=== PATIENT | male | born 1955 | race Caucasian/White ===

== ENCOUNTER 2021-03-25 09:59 | Inpatient (IN) | payer MEDICAID, OTHER, SELFPAY ==
[~2021-03-25] VITALS: Ht 177.8 cm; Wt 88.5 kg
[~2021-03-25 09:59] MED LIST: BENA5TAB9 PO; GLYB5TAB8 PO; METF-370 PO
[2021-03-25 11:27] LABS: Potassium 4.5 mmol/L (3.5-5.1)
[2021-03-25 11:35] LABS: Albumin 3.2 g/dL (3.4-5.0); BUN/Creatinine Ratio 14.9; Bilirubin, Total 0.5 mg/dL (0.2-1.0); Calcium 8.5 mg/dL (8.5-10.1); Total Protein 6.5 g/dL (6.4-8.2)
[2021-03-25 11:45] LABS: Basophils # (auto) 0 10 ^3/uL (0-0.2); Basophils % (auto) 0.2 % (0.0-2.0); Eosinophils # (auto) 0 10 ^3/uL (0-0.8); Eosinophils % (auto) 0.2 % (0.0-7.0); Hematocrit 39.1 % (41.0-53.0); Hemoglobin 13.3 g/dL (13.5-17.5); Lymphocytes # (auto) 0.6 10 ^3/uL (0.4-5.4); Lymphocytes % (auto) 3.3 % (10.0-50.0); Mean Corpuscular Hemoglobin 28.9 pg (28.0-32.0); Mean Corpuscular Hgb Conc. 34.2 g/dL (32.0-36.0); Mean Corpuscular Volume 84.8 fL (80.0-100.0); Monocytes # (auto) 0.4 10 ^3/uL (0-1.3); Monocytes % (auto) 2.5 % (0.0-12.0); Neutrophils # (auto) 15.8 10 ^3/uL (1.6-8.6); Neutrophils % (auto) 93.8 % (37.0-80.0); Red Blood Cells 4.61 10^6/uL (4.5-5.90); Red Cell Distribution Width 13.4 % (11.8-14.3); White Blood Cell 16.9 10^3/uL (4.4-10.8)
[2021-03-25] MEDS ORDERED: MORPHINE SULFATE 4 MG/ML SYR/VIAL IV ONE (16:15)
[2021-03-25] MEDS ORDERED: ONDANSETRON HCL 4 MG/2 ML VIAL IV ONE (16:15)
[2021-03-25] MEDS: SODIUM CHLORIDE 0.9% 1,000 ML IV ONE ×2 (18:00→18:59)
[2021-03-25] MEDS ORDERED: MORPHINE SULFATE INJECTION 2 MG/ML SYRG IV PRN (18:45)
[2021-03-25] MEDS ORDERED: ONDANSETRON HCL 4 MG/2 ML VIAL IV PRN (18:45)
[2021-03-25] MEDS ORDERED: SODIUM CHLORIDE 0.9% 2,000 ML IV ONE (18:45)
[2021-03-25] MEDS ORDERED: KETOROLAC TROMETH 30 MG/ML 1ML VIAL IV PRN (18:45)
[2021-03-25] MEDS ORDERED: hydrALAZINE HCL 20 MG/ML VL IV PRN (18:45)
[2021-03-25] MEDS ORDERED: NITROGLYCERIN 0.4 MG SL TAB SL PRN (18:45)
[2021-03-25] MEDS ORDERED: DEXTROSE (50%) 50ML SYRG IV PRN (18:45)
[2021-03-25] MEDS ORDERED: DOCUSATE CALCIUM 240 MG CAP PO PRN (18:45)
[2021-03-25] MEDS: MORPHINE SULFATE 4 MG/ML SYR/VIAL IV PRN ×2 (19:08→21:57)
[2021-03-25 19:57] LABS: Urine Bacteria NONE SEEN /hpf (None Seen); Urine Blood Negative /uL (Negative); Urine Budding Yeast OCCASIONAL /hpf (None Seen); Urine Hyaline Cast FEW /lpf (0 - 2); Urine Specific Gravity 1.018 (1.001-1.035); Urine WBC 4 /hpf (0 - 3)
[2021-03-25] MEDS: ACCU-CHEK COMFORT CURVE STRIP VI SCH ×2 (20:00→23:41)
[2021-03-25] MEDS: InsuLIN REG 1unit/0.01ml Soln (100units/ml) SC SCH (20:00)
[2021-03-25] MEDS ORDERED: CEPH500C PO (21:48)
[2021-03-25] MEDS ORDERED: CHLO25TA2 PO (21:48)
[2021-03-25] MEDS ORDERED: CLIN-203 PO (21:48)
[2021-03-25] MEDS ORDERED: GABA-339 PO (21:49)
[2021-03-25] MEDS: ENOXAPARIN SOD 40 MG/0.4 ML SYRINGE SC SCH (21:57)
[2021-03-25 22:00] VITALS: BP 136/68
[2021-03-25] MEDS: INSULIN LANTUS (GLARGINE) 1 /0.01ml (100units/ml) SC SCH (22:06)
[2021-03-26] VITALS (10 sets, daily range): BP systolic 114–139; BP diastolic 57–71
[2021-03-26] MEDS: InsuLIN REG 1unit/0.01ml Soln (100units/ml) SC SCH ×5 (00:04→21:22)
[2021-03-26] MEDS: MORPHINE SULFATE 4 MG/ML SYR/VIAL IV PRN ×3 (01:00→10:23)
[2021-03-26] MEDS: ACCU-CHEK COMFORT CURVE STRIP VI SCH ×4 (04:10→21:23)
[2021-03-26 07:35] LABS: Basophils # (auto) 0.1 10 ^3/uL (0-0.2); Basophils % (auto) 0.5 % (0.0-2.0); Eosinophils # (auto) 0 10 ^3/uL (0-0.8); Eosinophils % (auto) 0.4 % (0.0-7.0); Hematocrit 36.6 % (41.0-53.0); Hemoglobin 12.3 g/dL (13.5-17.5); Lymphocytes # (auto) 1.1 10 ^3/uL (0.4-5.4); Lymphocytes % (auto) 10.3 % (10.0-50.0); Mean Corpuscular Hemoglobin 28.6 pg (28.0-32.0); Mean Corpuscular Hgb Conc. 33.7 g/dL (32.0-36.0); Mean Corpuscular Volume 84.8 fL (80.0-100.0); Monocytes # (auto) 0.8 10 ^3/uL (0-1.3); Neutrophils # (auto) 8.9 10 ^3/uL (1.6-8.6); Neutrophils % (auto) 81.8 % (37.0-80.0); Red Blood Cells 4.31 10^6/uL (4.5-5.90); Red Cell Distribution Width 13.5 % (11.8-14.3); White Blood Cell 10.8 10^3/uL (4.4-10.8)
[2021-03-26 07:44] LABS: Partial Thromboplastin Time 27.4 sec (23.6-33.0)
[2021-03-26 07:46] LABS: Albumin 2.7 g/dL (3.4-5.0); Calcium 7.8 mg/dL (8.5-10.1); Potassium 4.1 mmol/L (3.5-5.1)
[2021-03-26 07:49] LABS: Bilirubin, Total 0.3 mg/dL (0.2-1.0); Total Protein 5.7 g/dL (6.4-8.2)
[2021-03-26 09:12] LABS: Cholesterol 167 mg/dL (< 200); HDL Cholesterol 27 mg/dL (40-59); LDL Cholesterol 96 mg/dL (< 100); Triglycerides 292 mg/dL (< 150)
[2021-03-26] MEDS: PANTOPRAZOLE 40 MG TAB PO SCH (10:16)
[2021-03-26] MEDS ORDERED: BUPIVACAINE W/ EPINEPH 0.25% INJ 50ML MDV ONE (14:04)
[2021-03-26] MEDS ORDERED: TRANEXAMIC ACID 20 ML ONE (14:04)
[2021-03-26] MEDS ORDERED: ceFAZolin 1GM/50ML 100 ML IV ONE (14:06)
[2021-03-26] MEDS ORDERED: KETOROLAC TROMETH 30 MG/ML 1ML VIAL ONE (14:23)
[2021-03-26] MEDS ORDERED: MORPHINE SULF PF 2 MG/2 ML SYRG ONE (14:44)
[2021-03-26] MEDS ORDERED: PROPOFOL 10 MG/ML 20 ML IV ONE (14:49)
[2021-03-26] MEDS ORDERED: ONDANSETRON HCL 4 MG/2 ML VIAL ONE (14:49)
[2021-03-26] MEDS ORDERED: MIDAZOLAM HCL 2MG/2ML 2ml VIAL (1mg/ml) ONE ×3 (14:49→15:02)
[2021-03-26] MEDS ORDERED: EPINEPHrine HCL 1 MG/1 ML AMP ONE (14:54)
[2021-03-26] MEDS ORDERED: TETRACAINE 1% INJ 2 ML VIAL IJ ONE (14:54)
[2021-03-26] MEDS ORDERED: fentaNYL CITRATE 100 MCG/2 ML VL ONE (14:56)
[2021-03-26] MEDS ORDERED: BUPIVACAINE/DEXTROSE MPF 0.75% 2 ML AMP IT ONE (14:57)
[2021-03-26] MEDS ORDERED: VANCOMYCIN HCL 1000 MG VL ONE (15:10)
[2021-03-26] MEDS ORDERED: ceFAZolin 1GM/50ML 50 ML IV SCH (16:15)
[2021-03-26] MEDS ORDERED: diphenhdrAMINE HCL 50 MG/1 ML VL IV PRN (17:00)
[2021-03-26] MEDS ORDERED: HYDROmorphone HCL 2 MG/ML VL IV PRN (17:00)
[2021-03-26] MEDS ORDERED: METOCLOPRAMIDE HCL 5MG/ml INJ 2ml VIAL IV PRN (17:00)
[2021-03-26] MEDS ORDERED: NALOXONE HCL 0.4 MG/ML VIAL IV PRN (17:00)
[2021-03-26] MEDS ORDERED: MORPHINE SULFATE INJECTION 2 MG/ML SYRG IV PRN (17:00)
[2021-03-26] MEDS ORDERED: DEXTROSE (50%) 50ML SYRG IV PRN (17:30)
[2021-03-26] MEDS: LACTATED RINGER'S 1,000 ML IV SCH (20:05)
[2021-03-26] MEDS: ceFAZolin 1GM/50ML 50 ML IV SCH (20:40)
[2021-03-26] MEDS: ATORVASTATIN 20 MG TAB PO SCH (21:09)
[2021-03-26] MEDS: SODIUM CHLOR 0.9% PF (SALINE LOCK) 10ML VIAL/SYR IV SCH (21:20)
[2021-03-26] MEDS: INSULIN LANTUS (GLARGINE) 1 /0.01ml (100units/ml) SC SCH (21:21)
[2021-03-26] MEDS: ENOXAPARIN SOD 40 MG/0.4 ML SYRINGE SC SCH (21:22)
[2021-03-27] VITALS (11 sets, daily range): BP systolic 101–158; BP diastolic 57–73
[2021-03-27] MEDS: ceFAZolin 1GM/50ML 50 ML IV SCH ×2 (02:04→09:12)
[2021-03-27] MEDS: MORPHINE SULFATE 4 MG/ML SYR/VIAL IV PRN (02:09)
[2021-03-27] MEDS: LACTATED RINGER'S 1,000 ML IV SCH (02:15)
[2021-03-27] MEDS: SODIUM CHLOR 0.9% PF (SALINE LOCK) 10ML VIAL/SYR IV SCH ×3 (05:41→22:12)
[2021-03-27] MEDS: ACCU-CHEK COMFORT CURVE STRIP VI SCH ×4 (05:42→22:10)
[2021-03-27 05:56] LABS: Hematocrit 31.2 % (41.0-53.0); Hemoglobin 10.8 g/dL (13.5-17.5)
[2021-03-27] MEDS: InsuLIN REG 1unit/0.01ml Soln (100units/ml) SC SCH ×4 (06:46→22:11)
[2021-03-27] MEDS: PANTOPRAZOLE 40 MG TAB PO SCH (09:12)
[2021-03-27 12:05] LABS: Albumin 2.6 g/dL (3.4-5.0)
[2021-03-27 12:08] LABS: BUN/Creatinine Ratio 18.4; Bilirubin, Total 0.6 mg/dL (0.2-1.0); Total Protein 5.8 g/dL (6.4-8.2)
[2021-03-27] MEDS: LORazepam 0.5 MG TAB PO PRN (15:33)
[2021-03-27] MEDS: ATORVASTATIN 20 MG TAB PO SCH (21:24)
[2021-03-27] MEDS: ENOXAPARIN SOD 40 MG/0.4 ML SYRINGE SC SCH (21:24)
[2021-03-27] MEDS: INSULIN LANTUS (GLARGINE) 1 /0.01ml (100units/ml) SC SCH (22:11)
[2021-03-28 05:36] LABS: Hemoglobin 10.2 g/dL (13.5-17.5)
[2021-03-28] MEDS: SODIUM CHLOR 0.9% PF (SALINE LOCK) 10ML VIAL/SYR IV SCH ×3 (06:39→21:10)
[2021-03-28 06:40] VITALS: BP 151/78
[2021-03-28] MEDS: MORPHINE SULFATE 4 MG/ML SYR/VIAL IV PRN ×2 (06:40→10:51)
[2021-03-28] MEDS: ACCU-CHEK COMFORT CURVE STRIP VI SCH ×4 (06:40→21:43)
[2021-03-28] MEDS: InsuLIN REG 1unit/0.01ml Soln (100units/ml) SC SCH ×4 (06:41→21:45)
[2021-03-28] MEDS: PANTOPRAZOLE 40 MG TAB PO SCH (09:23)
[2021-03-28] MEDS: ATORVASTATIN 20 MG TAB PO SCH (21:10)
[2021-03-28] MEDS: ENOXAPARIN SOD 40 MG/0.4 ML SYRINGE SC SCH (21:11)
[2021-03-28] MEDS: INSULIN LANTUS (GLARGINE) 1 /0.01ml (100units/ml) SC SCH (21:44)
[2021-03-28 22:00] VITALS: BP 189/69
[2021-03-29] MEDS: LORazepam 0.5 MG TAB PO PRN ×2 (01:35→21:21)
[2021-03-29 05:19] VITALS: BP 180/81
[2021-03-29] MEDS: SODIUM CHLOR 0.9% PF (SALINE LOCK) 10ML VIAL/SYR IV SCH ×3 (05:37→21:21)
[2021-03-29 05:40] LABS: Hematocrit 33.2 % (41.0-53.0); Hemoglobin 11.5 g/dL (13.5-17.5)
[2021-03-29] MEDS: ACCU-CHEK COMFORT CURVE STRIP VI SCH ×4 (06:14→21:21)
[2021-03-29] MEDS: InsuLIN REG 1unit/0.01ml Soln (100units/ml) SC SCH ×4 (06:16→21:47)
[2021-03-29 09:22] VITALS: BP 138/62
[2021-03-29] MEDS: PANTOPRAZOLE 40 MG TAB PO SCH (10:26)
[2021-03-29 13:00] VITALS: BP 125/47
[2021-03-29 17:31] VITALS: BP 149/73
[2021-03-29] MEDS ORDERED: ACETAMINOPHEN 325 MG TAB PO PRN (18:30)
[2021-03-29] MEDS: ENOXAPARIN SOD 40 MG/0.4 ML SYRINGE SC SCH (21:20)
[2021-03-29] MEDS: ATORVASTATIN 20 MG TAB PO SCH (21:21)
[2021-03-29] MEDS: INSULIN LANTUS (GLARGINE) 1 /0.01ml (100units/ml) SC SCH (21:48)
[2021-03-29 22:00] VITALS: BP 149/80
[2021-03-30 05:00] VITALS: BP 150/71
[2021-03-30] MEDS: ACCU-CHEK COMFORT CURVE STRIP VI SCH ×2 (05:57→11:31)
[2021-03-30] MEDS: SODIUM CHLOR 0.9% PF (SALINE LOCK) 10ML VIAL/SYR IV SCH ×2 (05:57→13:48)
[2021-03-30] MEDS: InsuLIN REG 1unit/0.01ml Soln (100units/ml) SC SCH ×2 (06:43→11:30)
[2021-03-30 09:00] VITALS: BP 139/64
[2021-03-30] MEDS: PANTOPRAZOLE 40 MG TAB PO SCH (09:26)
[2021-03-30] MEDS ORDERED: FUROSEMIDE 40 MG TAB PO ONE (12:00)
[2021-03-30] MEDS ORDERED: CHLO25TA2 PO (12:34)
[2021-03-30] MEDS ORDERED: METF-370 PO (12:34)
[2021-03-30] MEDS ORDERED: RIVA10TA PO (12:34)
[2021-03-30] MEDS ORDERED: ASPI1TAB20 PO (12:34)
[2021-03-30] MEDS ORDERED: LOSA25TA38 PO (12:34)
[2021-03-30] MEDS ORDERED: GABA-339 PO (12:34)
[2021-03-30] MEDS ORDERED: ATOR40TA52 PO (12:34)
[2021-03-30 12:47] VITALS: BP 167/73
== END 2021-03-30 16:27 | disposition home or self-care (01) | DRG 323 ==
LOC: ER 09:59 → EDBD 09:59 → OVERFLOW 18:41 → CENTRAL 21:08 → EAST 03-29 18:16
PROVIDERS: ADMIT Family Medicine; ATTEND Internal Medicine
PROC: 0SRS0JZ Replacement of Left Hip Joint, Femoral Surface with Synthetic Substitute, Open Approach (ICD-10-PCS; principal; 2021-03-26 14:46)
PROC: 5A09357 Assistance with Respiratory Ventilation, Less than 24 Consecutive Hours, Continuous Positive Airway Pressure (ICD-10-PCS; 2021-03-29)
DX: S72.012A Unspecified intracapsular fracture of left femur, initial encounter for closed fracture (principal); N17.0 Acute kidney failure with tubular necrosis; D64.9 Anemia, unspecified; E11.65 Type 2 diabetes mellitus with hyperglycemia; E11.51 Type 2 diabetes mellitus with diabetic peripheral angiopathy without gangrene; E78.1 Pure hyperglyceridemia; E78.5 Hyperlipidemia, unspecified; I50.32 Chronic diastolic (congestive) heart failure; E86.0 Dehydration; F17.210 Nicotine dependence, cigarettes, uncomplicated; I11.0 Hypertensive heart disease with heart failure; Z20.822 Contact with and (suspected) exposure to COVID-19; Y93.01 Activity, walking, marching and hiking; W06.XXXA Fall from bed, initial encounter; Z79.84 Long term (current) use of oral hypoglycemic drugs; Y92.098 Other place in other non-institutional residence as the place of occurrence of the external cause; Y99.8 Other external cause status
CPT/HCPCS: 36415; 71045; 72170; 73502; 73700; 80053; 80061; 81001; 82962; 83036; 84443; 85014; 85018; 85025; 85610; 85730; 86850; 86900; 86901; 87426; 93005; 93306; 93925; 94660; 96361; 96374; 96375; 97110; 97116; 97163; 97530; A4565; G0378; J0171; J0690; J1815; J1885; J2250; J2405; J2704

== ENCOUNTER 2021-04-26 16:39 | Inpatient (IN) | payer MEDICAID, OTHER ==
[~2021-04-26] VITALS: Ht 177.8 cm; Wt 80.3 kg
[~2021-04-26 16:39] MED LIST changes: +ASPI1TAB20 PO; +ATOR40TA52 PO; -BENA5TAB9 PO; +CHLO25TA2 PO; +GABA-339 PO; -GLYB5TAB8 PO; +LOSA25TA38 PO; +RIVA10TA PO
[2021-04-26 17:56] LABS: Albumin 3.1 g/dL (3.4-5.0); Calcium 8.9 mg/dL (8.5-10.1); Magnesium 2.4 mg/dL (1.6-2.6); Potassium 4.1 mmol/L (3.5-5.1)
[2021-04-26 18:00] LABS: Basophils # (auto) 0.1 10 ^3/uL (0-0.2); Basophils % (auto) 0.6 % (0.0-2.0); Eosinophils # (auto) 0.1 10 ^3/uL (0-0.8); Eosinophils % (auto) 1.4 % (0.0-7.0); Hemoglobin 12.7 g/dL (13.5-17.5); Lymphocytes # (auto) 1.8 10 ^3/uL (0.4-5.4); Lymphocytes % (auto) 17.7 % (10.0-50.0); Mean Corpuscular Hemoglobin 28.1 pg (28.0-32.0); Mean Corpuscular Hgb Conc. 34.3 g/dL (32.0-36.0); Mean Corpuscular Volume 81.9 fL (80.0-100.0); Monocytes # (auto) 0.4 10 ^3/uL (0-1.3); Monocytes % (auto) 4.3 % (0.0-12.0); Neutrophils # (auto) 7.7 10 ^3/uL (1.6-8.6); Red Blood Cells 4.51 10^6/uL (4.5-5.90); Red Cell Distribution Width 14.5 % (11.8-14.3); White Blood Cell 10.2 10^3/uL (4.4-10.8)
[2021-04-26 18:03] LABS: BUN/Creatinine Ratio 14.8; Bilirubin, Total 0.4 mg/dL (0.2-1.0); Total Protein 6.9 g/dL (6.4-8.2)
[2021-04-26 20:20] LABS: Urine Bacteria NONE SEEN /hpf (None Seen); Urine Blood Negative /uL (Negative); Urine WBC <1 /hpf (0 - 3)
[2021-04-26] MEDS ORDERED: ONDANSETRON HCL 4 MG/2 ML VIAL IV PRN (23:45)
[2021-04-26] MEDS ORDERED: hydrALAZINE HCL 20 MG/ML VL IV PRN (23:45)
[2021-04-26] MEDS ORDERED: ACETAMINOPHEN 325 MG TAB PO PRN (23:45)
[2021-04-26] MEDS ORDERED: DOCUSATE SOD 100 MG CAP PO PRN (23:45)
[2021-04-26] MEDS ORDERED: MORPHINE SULFATE 4 MG/ML SYR/VIAL IV PRN (23:45)
[2021-04-26] MEDS ORDERED: DEXTROSE (50%) 50ML SYRG IV PRN (23:45)
[2021-04-26] MEDS: SODIUM CHLORIDE 0.9% 1,000 ML IV SCH (23:54)
[2021-04-27] MEDS ORDERED: NITROGLYCERIN 0.4 MG SL TAB SL PRN (00:15)
[2021-04-27] MEDS ORDERED: MORPHINE SULFATE INJECTION 2 MG/ML SYRG IV PRN (00:15)
[2021-04-27] MEDS: HYDROcodone-ACET 5/325MG TAB PO PRN ×3 (05:08→12:14)
[2021-04-27] MEDS: InsuLIN REG 1unit/0.01ml Soln (100units/ml) SC SCH ×3 (06:58→17:00)
[2021-04-27] MEDS: ACCU-CHEK COMFORT CURVE STRIP VI SCH ×4 (06:58→21:52)
[2021-04-27 08:00] VITALS: BP 144/68
[2021-04-27] MEDS: SODIUM CHLORIDE 0.9% 1,000 ML IV SCH ×2 (08:05→16:25)
[2021-04-27 09:00] VITALS: BP 144/68
[2021-04-27 09:49] LABS: Basophils # (auto) 0.1 10 ^3/uL (0-0.2); Basophils % (auto) 0.7 % (0.0-2.0); Eosinophils # (auto) 0.2 10 ^3/uL (0-0.8); Eosinophils % (auto) 3.1 % (0.0-7.0); Hematocrit 33.3 % (41.0-53.0); Hemoglobin 11.4 g/dL (13.5-17.5); Lymphocytes % (auto) 26.1 % (10.0-50.0); Mean Corpuscular Hemoglobin 28.4 pg (28.0-32.0); Mean Corpuscular Hgb Conc. 34.2 g/dL (32.0-36.0); Mean Corpuscular Volume 83.1 fL (80.0-100.0); Monocytes # (auto) 0.5 10 ^3/uL (0-1.3); Monocytes % (auto) 6.3 % (0.0-12.0); Neutrophils # (auto) 4.9 10 ^3/uL (1.6-8.6); Neutrophils % (auto) 63.8 % (37.0-80.0); Nucleated Red Blood Cells % 0.1 %; Red Blood Cells 4.01 10^6/uL (4.5-5.90); Red Cell Distribution Width 14.5 % (11.8-14.3); White Blood Cell 7.6 10^3/uL (4.4-10.8)
[2021-04-27 09:59] LABS: Albumin 2.5 g/dL (3.4-5.0); Calcium 8.1 mg/dL (8.5-10.1); Potassium 4.2 mmol/L (3.5-5.1)
[2021-04-27] MEDS ORDERED: FAMOTIDINE (10MG/ML) 2ML VL IV SCH (10:00)
[2021-04-27 10:04] LABS: BUN/Creatinine Ratio 15.7; Bilirubin, Total 0.3 mg/dL (0.2-1.0); Total Protein 5.3 g/dL (6.4-8.2)
[2021-04-27] MEDS: ZINC SULFATE 220mg CAP or TAB PO SCH (11:37)
[2021-04-27] MEDS: ASCORBIC ACID 500 MG TAB PO SCH ×2 (11:37→21:52)
[2021-04-27] MEDS: ASPirin 81 mg TAB PO SCH (11:37)
[2021-04-27] MEDS ORDERED: ZOLPIDEM TARTRATE 5 MG TAB PO PRN (12:00)
[2021-04-27] MEDS: MULTIPLE VITAMIN TAB PO SCH (12:14)
[2021-04-27 13:00] VITALS: BP 149/65
[2021-04-27 17:00] VITALS: BP 135/65
[2021-04-27] MEDS ORDERED: IOHEXOL 350 MG/ML 100ML IJ ONE (19:06)
[2021-04-27] MEDS ORDERED: LORazepam 2MG/ML-1ML VIAL IV PRN (19:15)
[2021-04-27 20:00] VITALS: BP 144/68
[2021-04-27 22:00] VITALS: BP_SYST 115; BP_SYST 117; BP_SYST 151; BP_DIAS 61; BP_DIAS 63; BP_DIAS 67
[2021-04-27] MEDS ORDERED: InsuLIN REG 1unit/0.01ml Soln (100units/ml) SC SCH (22:00)
[2021-04-27] MEDS ORDERED: ATORVASTATIN 20 MG TAB PO SCH (22:00)
[2021-04-28 00:16] VITALS: BP 117/63
[2021-04-28] MEDS: SODIUM CHLORIDE 0.9% 1,000 ML IV SCH ×2 (04:00→09:23)
[2021-04-28 05:00] VITALS: BP 144/70
[2021-04-28] MEDS: HYDROcodone-ACET 5/325MG TAB PO PRN (05:15)
[2021-04-28] MEDS: InsuLIN REG 1unit/0.01ml Soln (100units/ml) SC SCH (07:00)
[2021-04-28] MEDS: ACCU-CHEK COMFORT CURVE STRIP VI SCH (07:02)
[2021-04-28 09:00] VITALS: BP 134/65
[2021-04-28] MEDS: MULTIPLE VITAMIN TAB PO SCH (09:23)
[2021-04-28] MEDS: ZINC SULFATE 220mg CAP or TAB PO SCH (09:23)
[2021-04-28] MEDS: ASCORBIC ACID 500 MG TAB PO SCH (09:23)
[2021-04-28] MEDS: ASPirin 81 mg TAB PO SCH (09:23)
== END 2021-04-28 12:00 | disposition home or self-care (01) | DRG 204 ==
LOC: ER 16:39 → EDBD 16:39 → TELE 04-27 00:08 → TELE-WESTW 04-27 03:25
PROVIDERS: ADMIT Nurse Practitioner Family; ATTEND Nurse Practitioner Family
DX: R55 Syncope and collapse (principal); E87.1 Hypo-osmolality and hyponatremia; E11.40 Type 2 diabetes mellitus with diabetic neuropathy, unspecified; R42 Dizziness and giddiness; E11.65 Type 2 diabetes mellitus with hyperglycemia; I10 Essential (primary) hypertension; F17.210 Nicotine dependence, cigarettes, uncomplicated; E78.00 Pure hypercholesterolemia, unspecified; Z20.822 Contact with and (suspected) exposure to COVID-19; Z79.84 Long term (current) use of oral hypoglycemic drugs; Z82.49 Family history of ischemic heart disease and other diseases of the circulatory system; Z83.3 Family history of diabetes mellitus; Z71.6 Tobacco abuse counseling
CPT/HCPCS: 36415; 70450; 71045; 71275; 80053; 80061; 81001; 82962; 83036; 83735; 84484; 85025; 85379; 87426; 93005; 93886; 93970; 94660; 96360; G0378; J1815

== ENCOUNTER 2021-08-17 11:22 | Emergency (ER) | payer OTHER, MEDICAID ==
[~2021-08-17] VITALS: Ht 177.8 cm; Wt 73.9 kg
[2021-08-17 12:46] LABS: Basophils # (auto) 0.2 10 ^3/uL (0-0.2); Basophils % (auto) 1.3 % (0.0-2.0); Eosinophils # (auto) 0.1 10 ^3/uL (0-0.8); Eosinophils % (auto) 0.8 % (0.0-7.0); Hematocrit 43.1 % (41.0-53.0); Hemoglobin 14.2 g/dL (13.5-17.5); Lymphocytes # (auto) 1.4 10 ^3/uL (0.4-5.4); Lymphocytes % (auto) 11.4 % (10.0-50.0); Mean Corpuscular Hgb Conc. 33.1 g/dL (32.0-36.0); Mean Corpuscular Volume 84.6 fL (80.0-100.0); Monocytes # (auto) 0.5 10 ^3/uL (0-1.3); Monocytes % (auto) 4.4 % (0.0-12.0); Neutrophils # (auto) 9.8 10 ^3/uL (1.6-8.6); Neutrophils % (auto) 82.1 % (37.0-80.0); Nucleated Red Blood Cells % 0.1 %; Red Cell Distribution Width 14.8 % (11.8-14.3)
[2021-08-17 13:03] LABS: Albumin 3.2 g/dL (3.4-5.0); BUN/Creatinine Ratio 9.7; Calcium 8.6 mg/dL (8.5-10.1); Potassium 3.8 mmol/L (3.5-5.1)
[2021-08-17 13:06] LABS: Bilirubin, Total 0.4 mg/dL (0.2-1.0); Total Protein 6.6 g/dL (6.4-8.2)
[2021-08-17 14:40] LABS: Urine Bacteria NONE SEEN /hpf (None Seen); Urine Blood Negative /uL (Negative); Urine Budding Yeast FEW /hpf (None Seen); Urine Hyaline Cast MANY /lpf (0 - 2); Urine Mucus FEW (None Seen); Urine Specific Gravity 1.017 (1.001-1.035); Urine WBC 3 /hpf (0 - 3)
[2021-08-17 14:55] VITALS: BP 161/63
[2021-08-17] MEDS ORDERED: metroNIDAZOLE 500 MG TAB PO ONE (15:45)
[2021-08-17] MEDS ORDERED: OXYCODONE W/ ACETAMINOPHEN 5/325MG TABLET PO ONE (15:45)
[2021-08-17] MEDS ORDERED: PERCOT PO (17:05)
[2021-08-17] MEDS ORDERED: METR500T PO (17:05)
[2021-08-17] MEDS ORDERED: ONDA-144 PO (17:05)
[2021-08-17] MEDS ORDERED: CIPR-173 PO (17:05)
== END 2021-08-17 17:26 | disposition home or self-care (01) ==
LOC: ER 11:22
DX: K52.9 Noninfective gastroenteritis and colitis, unspecified (principal); E11.9 Type 2 diabetes mellitus without complications; I10 Essential (primary) hypertension; F17.210 Nicotine dependence, cigarettes, uncomplicated
CPT/HCPCS: 36415; 74176; 80053; 81001; 85025

== ENCOUNTER 2021-09-13 16:44 | Emergency (ER) | payer OTHER, MEDICAID ==
[~2021-09-13] VITALS: Ht 177.8 cm; Wt 72.6 kg
[~2021-09-13 16:44] MED LIST changes: +CIPR-173 PO; +METR500T PO; +ONDA-144 PO; +PERCOT PO
[2021-09-13] MEDS ORDERED: IOHEXOL 300 MG/ML 100ML BOTTLE IJ ONE (16:58)
[2021-09-13] MEDS ORDERED: SODIUM CHLORIDE 0.9% 1,000 ML IVB ONE (17:00)
[2021-09-13] MEDS ORDERED: ONDANSETRON HCL 4 MG/2 ML VIAL IV ONE (17:00)
[2021-09-13 18:19] LABS: Basophils # (auto) 0 10 ^3/uL (0-0.2); Basophils % (auto) 0.3 % (0.0-2.0); Eosinophils # (auto) 0 10 ^3/uL (0-0.8); Hematocrit 43.1 % (41.0-53.0); Lymphocytes # (auto) 0.8 10 ^3/uL (0.4-5.4); Lymphocytes % (auto) 4.8 % (10.0-50.0); Mean Corpuscular Hemoglobin 28.6 pg (28.0-32.0); Mean Corpuscular Hgb Conc. 34.7 g/dL (32.0-36.0); Mean Corpuscular Volume 82.4 fL (80.0-100.0); Monocytes # (auto) 0.7 10 ^3/uL (0-1.3); Monocytes % (auto) 4.1 % (0.0-12.0); Neutrophils # (auto) 15.6 10 ^3/uL (1.6-8.6); Neutrophils % (auto) 90.8 % (37.0-80.0); Red Blood Cells 5.23 10^6/uL (4.5-5.90); Red Cell Distribution Width 15.1 % (11.8-14.3); White Blood Cell 17.2 10^3/uL (4.4-10.8)
[2021-09-13 18:29] LABS: Albumin 3.5 g/dL (3.4-5.0); Calcium 8.9 mg/dL (8.5-10.1); Potassium 3.7 mmol/L (3.5-5.1)
[2021-09-13 18:33] LABS: BUN/Creatinine Ratio 10.2
[2021-09-13 18:36] LABS: Bilirubin, Total 0.7 mg/dL (0.2-1.0); Total Protein 7.4 g/dL (6.4-8.2)
[2021-09-13 18:37] LABS: Lactic Acid w/Reflex 2.3 mmol/L (0.4-2.0)
[2021-09-13] MEDS ORDERED: fentaNYL CITRATE 100 MCG/2 ML VL IV ONE (19:00)
[2021-09-13] MEDS ORDERED: PIPERACILLIN-TAZOB 3.375GM 100 ML IV ONE (19:00)
[2021-09-13 20:25] LABS: Urine Bacteria NONE SEEN /hpf (None Seen); Urine Blood Negative /uL (Negative); Urine WBC <1 /hpf (0 - 3)
[2021-09-13] MEDS ORDERED: SODIUM CHLORIDE 0.9% 1,000 ML IV SCH (22:00)
[2021-09-13] MEDS ORDERED: ACETAMINOPHEN 325 MG TAB PO PRN (22:00)
[2021-09-13] MEDS ORDERED: ONDANSETRON HCL 4 MG/2 ML VIAL IV PRN (22:00)
[2021-09-13] MEDS ORDERED: MORPHINE SULFATE INJ 2 MG/ml SYRG IV PRN (22:00)
[2021-09-13] MEDS ORDERED: DEXTROSE (50%) 50ML SYRG IV PRN (22:00)
[2021-09-13] MEDS: HYDROcodone-ACET 5/325MG TAB PO PRN (23:13)
[2021-09-14] MEDS: PIPERACILLIN-TAZOB 3.375GM 100 ML IV SCH ×3 (00:30→12:32)
[2021-09-14] MEDS: ACCU-CHEK COMFORT CURVE STRIP VI SCH ×3 (00:30→12:33)
[2021-09-14] MEDS: InsuLIN REG 1unit/0.01ml Soln (100units/ml) SC SCH ×3 (00:31→12:32)
[2021-09-14 03:42] LABS: Basophils # (auto) 0.1 10 ^3/uL (0-0.2); Basophils % (auto) 0.2 % (0.0-2.0); Eosinophils # (auto) 0 10 ^3/uL (0-0.8); Hematocrit 38.7 % (41.0-53.0); Hemoglobin 13.4 g/dL (13.5-17.5); Lymphocytes # (auto) 1.2 10 ^3/uL (0.4-5.4); Lymphocytes % (auto) 5.3 % (10.0-50.0); Mean Corpuscular Hemoglobin 28.5 pg (28.0-32.0); Mean Corpuscular Hgb Conc. 34.6 g/dL (32.0-36.0); Mean Corpuscular Volume 82.3 fL (80.0-100.0); Monocytes # (auto) 1.2 10 ^3/uL (0-1.3); Monocytes % (auto) 5.1 % (0.0-12.0); Neutrophils # (auto) 20.4 10 ^3/uL (1.6-8.6); Neutrophils % (auto) 89.4 % (37.0-80.0); Red Blood Cells 4.71 10^6/uL (4.5-5.90); Red Cell Distribution Width 14.8 % (11.8-14.3); White Blood Cell 22.9 10^3/uL (4.4-10.8)
[2021-09-14 04:04] LABS: Albumin 2.7 g/dL (3.4-5.0); Calcium 8.3 mg/dL (8.5-10.1)
[2021-09-14 04:06] LABS: Bilirubin, Total 0.9 mg/dL (0.2-1.0); Total Protein 5.9 g/dL (6.4-8.2)
[2021-09-14 04:15] LABS: INR 1.13 (0.9-1.15); Partial Thromboplastin Time 29.7 sec (23.6-33.0)
[2021-09-14] MEDS: HYDROcodone-ACET 5/325MG TAB PO PRN ×2 (07:43→15:01)
[2021-09-14] MEDS ORDERED: FAMOTIDINE (10MG/ML) 2ML VL IV SCH (10:00)
[2021-09-14] MEDS ORDERED: NITROGLYCERIN 0.4 MG SL TAB SL PRN (12:45)
[2021-09-14] MEDS ORDERED: MORPHINE SULFATE INJ 2 MG/ml SYRG IV PRN (12:45)
[2021-09-14] MEDS ORDERED: SODIUM CHLORIDE 0.9% 1,000 ML IV SCH (13:00)
[2021-09-14] MEDS ORDERED: hydrALAZINE HCL 20 MG/ML VL IV PRN (13:30)
[2021-09-14 18:04] VITALS: BP 130/62
== END 2021-09-14 18:01 | disposition short-term general hospital (02) ==
LOC: ER 16:44 → EDBD 16:44 → UNDOADMIN 09-14 12:43 → OVERFLOW 09-14 12:43 → UNDODISIN 09-14 18:30
DX: K81.0 Acute cholecystitis (principal); E11.9 Type 2 diabetes mellitus without complications; F17.210 Nicotine dependence, cigarettes, uncomplicated; I10 Essential (primary) hypertension; Z20.822 Contact with and (suspected) exposure to COVID-19; Z79.899 Other long term (current) drug therapy
CPT/HCPCS: 36415; 74177; 74181; 76705; 78226; 80053; 81001; 82962; 83605; 83690; 84484; 85025; 85610; 85730; 87040; 87426; 93005; 96361; 96365; 96366; 96372; 96375; 99285; A9537; J1815; J2405; J2543; J3010; J3490; J7030; Q9967; 99291; G0378